=== PATIENT | male | born 1950 | race Two or more races ===

== ENCOUNTER 2025-02-12 10:46 | Outpatient (CLI) | payer OTHER ==
[~2025-02-12 10:46] MED LIST: ALTACE5 MG PO; ASA81 MG PO; ATENOLOL25 MG PO; LIPITOR40 MG PO; PLAVIX75 MG PO; PROTONIX40 MG PO
== END 2025-02-12 10:48 | disposition home or self-care (01) ==
LOC: SONOGRAMA 10:46
PROVIDERS: ATTEND Physical Medicine & Rehabilitation Hospice and Palliative Medicine
DX: R22.41 Localized swelling, mass and lump, right lower limb (principal)